=== PATIENT | female | born 1990 ===

== ENCOUNTER 2018-09-04 08:48 | Day surgery (SDC) | payer BC ==
[2018-08-23 15:10] VITALS: BMI 25.0
--- NOTE | 2018-09-04 10:07 | CP.SDSHP ---
Same Day Surgery H & P - History Proposed Procedure: US guided FNA of thyroid nodule Pre-Op Diagnosis: Thyroid nodule - Allergies Allergies: Allergies No Known Allergies Allergy (Verified 08/23/18 15:09) - Physical Exam Mental Status: Alert & Oriented x3 - Impression Impression: Limited thyroid US showed a heterogenous thyroid with no nodules in the left or right thyroid gland. The appearance of thyroid is unchanged from Thyroid US performed on 04/17/2014. No FNA performed. Pt. Evaluated Today:Candidate for Anesthesia & Procedure: No Short Stay Discharge - Short Stay Discharge Admitting Diagnosis/Reason for Visit: NONTOXIC SINGLE THYROID NODULE Disposition: HOME/ ROUTINE
--- NOTE | 2018-09-04 11:24 | US ---
Date of service: 09/04/2018 HISTORY: THYROID NODULE TECHNIQUE: Sonographic evaluation of the thyroid gland. COMPARISON: Thyroid ultrasound 04/19/2014 FINDINGS: RIGHT LOBE: Measures 3.9 x 1.1 x 1.3 centimeters. Heterogeneous thyroid gland. Nodules: None LEFT LOBE: Measures 4.2 x 1.2 x 1.4 centimeters cm. Heterogeneous thyroid gland.. Nodules: None ISTHMUS: Measures 0.2 centimeters. Normal echotexture and flow. Nodules: None OTHER FINDINGS: None . IMPRESSION: Heterogeneous right and left thyroid gland without evidence of nodules. A hypoechoic areas noted superior aspect of left thyroid. This is heterogeneous thyroid tissue and not a defined nodule.
== END 2018-09-04 11:22 | disposition home or self-care (01) ==
LOC: C.SPRAD 08:48
PROVIDERS: ATTEND Radiology Vascular & Interventional Radiology
DX: E04.1 Nontoxic single thyroid nodule (principal)